=== PATIENT | female | born 1995 | race Two or more races ===

== ENCOUNTER 2017-09-05 20:54 | Emergency (ER) | payer OTHER, SELFPAY ==
[~2017-09-05] VITALS: Ht 167.6 cm; Wt 73.5 kg
[2017-09-05 20:56] VITALS: BP 142/75
[2017-09-05] MEDS ORDERED: KETOROLAC 30 MG/1 ML IM ONE (22:00)
== END 2017-09-05 23:13 | disposition home or self-care (01) ==
LOC: ED 23:02
DX: S39.012A Strain of muscle, fascia and tendon of lower back, initial encounter (principal); X50.0XXA Overexertion from strenuous movement or load, initial encounter; Y93.89 Activity, other specified; Y92.89 Other specified places as the place of occurrence of the external cause; Y99.2 Volunteer activity
CPT/HCPCS: 72072; 72110; 99284